=== PATIENT | male | born 1985 | race Two or more races ===

== ENCOUNTER 2017-11-21 22:19 | Emergency (ER) | payer MEDICAID ==
[2017-11-22] MEDS: IPRATROPIUM (NEB) 0.5 MG/2.5 ML AMP NEB (02:12)
[2017-11-22] MEDS: ALBUTEROL 0.083% (NEB) 2.5 MG/3 ML AMP NEB (02:12)
== END 2017-11-22 04:55 | disposition home or self-care (01) ==
LOC: FTE 22:19
DX: J20.9 Acute bronchitis, unspecified (principal); J45.901 Unspecified asthma with (acute) exacerbation; R05 Cough
CPT/HCPCS: 71045; 93005; 94664; 99284-25